=== PATIENT | female | born 1975 ===

== ENCOUNTER 2021-04-07 13:44 | Inpatient (IN) | payer OTHER ==
[~2021-04-07] VITALS: Wt 71.8 kg
[2021-04-07] VITALS (10 sets, daily range): BP systolic 78–106; BP diastolic 28–70; PULSE 81–109; TEMP 98–98.6
[2021-04-07 15:26] LABS: MEAN CELL VOLUME 127 fl (80.0-100.0); MEAN CORPUSCULAR HGB CONC 32 g/dl (33.0-37.0); MEAN PLATELET VOLUME 11.3 fl (7.4-10.4); PLATELET COUNT 98 K/mm3 (130-400); RED BLOOD COUNT 1.41 M/mm3 (4.10-5.30); REDCELL DISTRIBUTION WIDTH-CV 17.2 % (11.5-14.5)
[2021-04-07 15:32] LABS: MEAN CORPUSCULAR HEMOGLOBIN 41 pg (27.0-31.0)
[2021-04-07 15:34] LABS: HEMATOCRIT 17.9 % (37.0-47.0); HEMOGLOBIN 5.8 g/dl (12.5-16.0)
[2021-04-07 15:42] LABS: INR 2.4 (0.8-3.0); PROTHROMBIN TIME 26.9 SECONDS (9.7-12.8)
[2021-04-07 15:51] LABS: ALANINE AMINOTRANSFERASE 49 U/L (0-55); ALBUMIN 2.7 gm/dL (3.5-5.0); ALKALINE PHOSPHATASE 175 U/L (40-150); ANION GAP 13 mmol/L (7-16); AST,SGOT 140 U/L (5-34); BLOOD UREA NITROGEN 28 mg/dL (7-19); CALCIUM 9.2 mg/dL (8.4-10.2); CARBON DIOXIDE 23 mmol/L (22-29); CHLORIDE 95 mmol/L (98-107); CREATININE, serum 1.33 mg/dL (0.57-1.11); GLUCOSE 122 mg/dL (70-99); LIPASE 183 U/L (8-78); SODIUM 131 mmol/L (136-145); TOTAL PROTEIN 7.1 gm/dL (6.2-8.1)
[2021-04-07 15:54] LABS: ALCOHOL(ethanol),MEDICAL < 10 mg/dL (0-10); BILIRUBIN,TOTAL 41.5 mg/dL (0.2-1.2); POTASSIUM 2.7 mmol/L (3.5-4.5)
[2021-04-07 16:14] LABS: LYMPHOCYTE 10 % (20.0-51.0); NEUTROPHILS 85 % (42.0-75.2)
[2021-04-07 16:16] LABS: TEAR DROP CELLS 1+
[2021-04-07] MEDS ORDERED: REQUIP 0.5MG0.5 MG PO (16:41)
[2021-04-07] MEDS ORDERED: ALDACTONE 100M100 MG PO (16:41)
[2021-04-07] MEDS ORDERED: ATARAX 25MG25 MG/TAB PO (16:41)
[2021-04-07] MEDS ORDERED: INDERAL 20MG20 MG PO (16:41)
[2021-04-07] MEDS ORDERED: PROTONIX 40MG T40 MG PO (16:42)
[2021-04-07] MEDS ORDERED: SINGULAIR 110 MG/TAB PO (16:43)
[2021-04-07] MEDS ORDERED: ZYRTEC 10MG10 MG PO (16:43)
[2021-04-07] MEDS ORDERED: LASIX 20MG TABL20 MG PO (17:08)
[2021-04-08] VITALS (10 sets, daily range): BP systolic 86–124; BP diastolic 32–93; PULSE 73–94; TEMP 98–99.7
[2021-04-08 00:28] LABS: HEMATOCRIT 20.2 % (37.0-47.0); HEMOGLOBIN 6.6 g/dl (12.5-16.0)
[2021-04-08 03:46] LABS: COLLECTION METHOD CLEAN CATCH
[2021-04-08 04:02] LABS: BUDDING YEAST Present (NOT PRESENT); MUCOUS Present (NOT PRESENT); PH 6 (5-8); URINE APPEARANCE Cloudy (CLEAR/HAZY); URINE BACTERIA Many (NONE SEEN); URINE BILIRUBIN Positive (NEGATIVE); URINE BLOOD 3+ (NEGATIVE); URINE COLOR Amber (YELLOW); URINE GLUCOSE Negative (NEGATIVE); URINE KETONE Negative (NEGATIVE); URINE LEUKOCYTE ESTERASE Negative (NEGATIVE); URINE NITRATE Negative (NEGATIVE); URINE PROTEIN(semi-quant) Negative (NEGATIVE); URINE UROBILINOGEN >=4.0 mg/dL (NEGATIVE)
[2021-04-08 04:44] LABS: TRICYCLIC ANTIDEPRESS URINE NEGATIVE
--- NOTE | 2021-04-08 06:08 | NUR ---
Patient has been awake most of night. Had received one unit of blood. Rechecked HMG with a result of 6.6. RICH Gilbert aware. Patient BP remain soft. Continues to have hallucinations: talking to someone who is not in the room, yelling to get someone out of her room that is not there, etc. Took mediations per orders, cooperative with treatments. Has been incontinent tonight of stools. Staff assisted with perineal care. Voices no questions, needs, or concerns at this time. In bed with call light within reach. High fall risk precautions in place.
[2021-04-08 06:52] LABS: MEAN CORPUSCULAR HGB CONC 33 g/dl (33.0-37.0); PLATELET COUNT 97 K/mm3 (130-400); RED BLOOD COUNT 1.66 M/mm3 (4.10-5.30)
[2021-04-08 06:56] LABS: HEMATOCRIT 20.3 % (37.0-47.0); MEAN CELL VOLUME 122 fl (80.0-100.0); MEAN CORPUSCULAR HEMOGLOBIN 40 pg (27.0-31.0)
[2021-04-08 07:00] LABS: HEMOGLOBIN 6.6 g/dl (12.5-16.0)
[2021-04-08 07:11] LABS: INR 2.1 (0.8-3.0)
[2021-04-08 07:44] LABS: ALBUMIN 2.6 gm/dL (3.5-5.0); CALCIUM 8.9 mg/dL (8.4-10.2); CREATININE, serum 1.25 mg/dL (0.57-1.11); MAGNESIUM 2.2 mg/dL (1.6-2.6); POTASSIUM 3.1 mmol/L (3.5-4.5); TOTAL PROTEIN 6.9 gm/dL (6.2-8.1)
[2021-04-08 07:45] LABS: BILIRUBIN,TOTAL 39.4 mg/dL (0.2-1.2)
[2021-04-08 08:05] LABS: PATHOLOGY DIFF REVIEW OK
[2021-04-08 09:03] LABS: BAND 3 % (0-10); EOSINOPHIL 1 % (0-4); HYPOCHROMIA 1+; LYMPHOCYTE 10 % (20.0-51.0); MYELOCYTE 2 % (0-0); NEUTROPHILS 72 % (42.0-75.2); NUCLEATED RED BLOOD CELL 1 (0-6)
[2021-04-08 09:04] LABS: PLATELET ESTIMATE DECREASED (NORMAL)
[2021-04-08 09:06] LABS: TARGET CELLS 1+
[2021-04-08 09:18] LABS: BILIRUBIN,DIRECT 25.5 mg/dL (0.0-0.5)
--- NOTE | 2021-04-08 12:53 | NUR ---
SW met with patient to complete intake. Patient states that she lives in [facility] with her Jg [phone]. Patient states that she does not use DME and is independent with ADL's. In between questions patient would like to the left towards her room window after answer each question looking to confirm the answers to her questions with person that was not present. SW continued on with intake questions and patient states that she obtains her medications from [facility], and provides her DPOA is her spouse. Patient states that she plans to return to her home in [facility] on DC and asked SW if she could wait for the response of the person not present. SW informed patient that there was no other person present to obtain a response, and patient stated they must have already left. SW will continue to follow. DC plan: home
[2021-04-09] VITALS (10 sets, daily range): BP systolic 88–110; BP diastolic 34–54; PULSE 87–99; TEMP 98.2–100.1
--- NOTE | 2021-04-09 00:18 | NUR ---
Patient assessed around 2149. Compliant with medications. Reported headache. Received order for PRN Reglan/Benadryl IV, but in bed with eyes closed at this time, respirations even and unalbored. Peripheral INT to left AC. 1+ edema BLE. Patient incontinent of bowel and bladder at times. Patient states that she is feeling better today, and has been able to rest. No obvious hallucinations noted so far this shift like last night (patient would talk to and get angry at people in her room that were not there the previous night). In bed with call light within reach. High fall risk precautions in place.
--- NOTE | 2021-04-09 06:01 | NUR ---
Patient has been resting in bed with call light within reach. Recieved PRN medication for headache as requested. Voices no questions, needs, or concerns at this time.
[2021-04-09 07:57] LABS: MEAN CELL VOLUME 120 fl (80.0-100.0); MEAN CORPUSCULAR HGB CONC 33 g/dl (33.0-37.0); MEAN PLATELET VOLUME 10.8 fl (7.4-10.4); PLATELET COUNT 99 K/mm3 (130-400); RED BLOOD COUNT 1.53 M/mm3 (4.10-5.30)
[2021-04-09 08:06] LABS: INR 1.9 (0.8-3.0); PROTHROMBIN TIME 21.4 SECONDS (9.7-12.8)
[2021-04-09 08:22] LABS: ALBUMIN 2.4 gm/dL (3.5-5.0); CALCIUM 8.4 mg/dL (8.4-10.2); CREATININE, serum 1.1 mg/dL (0.57-1.11); TOTAL PROTEIN 6.3 gm/dL (6.2-8.1)
[2021-04-09 08:49] LABS: BILIRUBIN,TOTAL 36.2 mg/dL (0.2-1.2)
[2021-04-09 09:14] LABS: HEMATOCRIT 18.3 % (37.0-47.0); HEMOGLOBIN 6.1 g/dl (12.5-16.0); MEAN CORPUSCULAR HEMOGLOBIN 40 pg (27.0-31.0)
--- NOTE | 2021-04-09 10:17 | NUR ---
Pt assessment complete. Pt is sitting up in bed upon entry, she is A/O x4 but occasionally confused still. Denies hallucinations visual or verbal. Denies N/V, able to tolerate some breakfast. No pain at this time. Requesting to shower later today. No needs at this time. Call light and bed alarms in place.
[2021-04-09 13:02] LABS: LYMPHOCYTE 8 % (20.0-51.0); METAMYELOCYTE 1 % (0-0); NEUTROPHILS 77 % (42.0-75.2)
[2021-04-09 13:03] LABS: PLATELET ESTIMATE DECREASED (NORMAL)
[2021-04-09 13:04] LABS: POLYCHROMASIA 1+
--- NOTE | 2021-04-09 18:27 | NUR ---
Pt oriented through the day. Able to make needs known. Denied any N/V. Did report several stools through the day. Tolerating PO. Improvement of headache with a Lisa. POC discussed with patient. No needs at this time.
--- NOTE | 2021-04-09 23:08 | NUR ---
Patient resting in bed upon enter the room. Patient easily awake with verbal stimulation. Patient A/Ox4. Patient denies any hallucinations. Patient reports headache. PRN pain med given for headache. Patient tolerating dinner. No N/V noted. VS stable. Potassium IV is currently infusing to left AC iv site. All scheduled meds given per JUN. Call light in reach. Will continue to monitor.
[2021-04-10] VITALS (9 sets, daily range): BP systolic 88–114; BP diastolic 34–58; PULSE 76–90; TEMP 97.4–98.6
[2021-04-10 06:50] LABS: INR 2.1 (0.8-3.0); PROTHROMBIN TIME 23.1 SECONDS (9.7-12.8)
[2021-04-10 07:07] LABS: MEAN CELL VOLUME 121 fl (80.0-100.0); MEAN CORPUSCULAR HGB CONC 33 g/dl (33.0-37.0); MEAN PLATELET VOLUME 10.6 fl (7.4-10.4); PLATELET COUNT 106 K/mm3 (130-400); RED BLOOD COUNT 1.63 M/mm3 (4.10-5.30)
[2021-04-10 07:17] LABS: ALBUMIN 2.3 gm/dL (3.5-5.0); BILIRUBIN,TOTAL 34.7 mg/dL (0.2-1.2); CALCIUM 8.4 mg/dL (8.4-10.2); CREATININE, serum 1.02 mg/dL (0.57-1.11); MAGNESIUM 2.3 mg/dL (1.6-2.6); POTASSIUM 4.2 mmol/L (3.5-4.5); TOTAL PROTEIN 6.4 gm/dL (6.2-8.1)
[2021-04-10 08:18] LABS: HEMATOCRIT 19.7 % (37.0-47.0); HEMOGLOBIN 6.5 g/dl (12.5-16.0); MEAN CORPUSCULAR HEMOGLOBIN 40 pg (27.0-31.0)
[2021-04-10 08:29] LABS: BAND 2 % (0-10); LYMPHOCYTE 7 % (20.0-51.0); METAMYELOCYTE 1 % (0-0); NEUTROPHILS 82 % (42.0-75.2); NUCLEATED RED BLOOD CELL 1 (0-6); PLATELET ESTIMATE DECREASED (NORMAL); TEAR DROP CELLS 1+
[2021-04-10 08:30] LABS: POLYCHROMASIA 1+
[2021-04-10 08:33] LABS: ANISOCYTOSIS 1+
--- NOTE | 2021-04-10 08:34 | NUR ---
CRITICAL HGB REPORTED TO RICH MINER.
[2021-04-10 17:23] LABS: HEMATOCRIT 20.9 % (37.0-47.0); HEMOGLOBIN 6.8 g/dl (12.5-16.0)
--- NOTE | 2021-04-10 17:25 | NUR ---
CRITICAL HGB LEVEL CALLED TO DR. MENENDEZ
--- NOTE | 2021-04-10 18:00 | NUR ---
Scheduled medications given. Shift assessment performed. Patient given oxy one time this shift for a headached rated a 6/10. Patient states that this helped. Has denied any further pain. Blood pressures have been on the softer side, Provider aware. The rest of her vital signs are stable, patient A&O. Patient denies any further needs at this time. Call light in reach.
--- NOTE | 2021-04-10 19:10 | NUR ---
Patient sitting up in bed and eating dinner at shift change. Patient reports feeling much better today. No acute distress noted. Call light in reach.
--- NOTE | 2021-04-10 22:16 | NUR ---
Patient assessed. Patient A/Ox4. Patient denies pain, SOB, headache, or N/V. Patient states feeling much better. Denies having hallucinations today. Scheduled meds given per JUN. BP med not given due to soft BP tonight. Call light in reach. Will continue to monitor.
--- NOTE | 2021-04-10 22:19 | NUR ---
Patient not scoring anymore on CIWA protocol for the last 24 hours. Called RICH Gilbert and updated.
[2021-04-11 01:41] VITALS: BP 96/40; PULSE 79; TEMP 98.7
[2021-04-11 05:09] VITALS: BP 115/54; PULSE 80; TEMP 99.2
[2021-04-11 07:11] LABS: MEAN CELL VOLUME 120 fl (80.0-100.0); MEAN CORPUSCULAR HGB CONC 33 g/dl (33.0-37.0); PLATELET COUNT 120 K/mm3 (130-400); RED BLOOD COUNT 1.63 M/mm3 (4.10-5.30); REDCELL DISTRIBUTION WIDTH-CV 24.4 % (11.5-14.5)
[2021-04-11 07:14] LABS: HEMATOCRIT 19.6 % (37.0-47.0); HEMOGLOBIN 6.5 g/dl (12.5-16.0); MEAN CORPUSCULAR HEMOGLOBIN 40 pg (27.0-31.0)
[2021-04-11 07:24] LABS: ALBUMIN 2.3 gm/dL (3.5-5.0); BILIRUBIN,TOTAL 27.9 mg/dL (0.2-1.2); CREATININE, serum 1.01 mg/dL (0.57-1.11); POTASSIUM 3.7 mmol/L (3.5-4.5); TOTAL PROTEIN 6.3 gm/dL (6.2-8.1)
--- NOTE | 2021-04-11 07:39 | NUR ---
CRITICAL HGB CALLED TO RICH VILLEGAS.
[2021-04-11 07:45] VITALS: BP 115/48; PULSE 74; TEMP 98.6
[2021-04-11] MEDS ORDERED: MAG-OX 400400 MG/TAB PO (11:03)
[2021-04-11] MEDS ORDERED: FOLIC ACID 11 MG/TA1 PO (11:03)
[2021-04-11] MEDS ORDERED: MULTI VITAMINS1 TAB PO (11:04)
[2021-04-11] MEDS ORDERED: THIAMINE 1100 MG/TAB PO (11:04)
[2021-04-11] MEDS ORDERED: OMNICEF 300MG300 MG PO (11:09)
[2021-04-11] MEDS ORDERED: PREDNISOLO15 MG/5 M3 PO (11:15)
[2021-04-11] MEDS ORDERED: LACTULOSE10 GM/153 PO (11:18)
[2021-04-11 12:15] VITALS: BP 105/50; PULSE 76; TEMP 97.9
--- NOTE | 2021-04-11 13:57 | NUR ---
Scheduled medications given. Shift assessment performed. Patient denies any pain, discomfort, SOA, or further needs at this time. Patient deemed fit for dicharge. IV DC'd, catheter intact, no signs of phlebitis. Discharge education/instructions given. All questions answered. VSS. Patient A&O. Patient escorted from building via wheelchair by [facility] Staff. transporting home.
== END 2021-04-11 14:00 | disposition home or self-care (01) | DRG 433 ==
LOC: COL.ER 13:44 → MEDICAL 16:39 → SURG 04-10 09:33 → MEDICAL 04-10 09:33
PROVIDERS: Family Medicine; Internal Medicine; Physician Assistant; Student in an Organized Health Care Education/Training Program; ADMIT Internal Medicine
DX: K70.10 Alcoholic hepatitis without ascites (principal); E87.1 Hypo-osmolality and hyponatremia; N17.9 Acute kidney failure, unspecified; N39.0 Urinary tract infection, site not specified; K70.30 Alcoholic cirrhosis of liver without ascites; K21.9 Gastro-esophageal reflux disease without esophagitis; K72.90 Hepatic failure, unspecified without coma; F10.10 Alcohol abuse, uncomplicated; Y90.9 Presence of alcohol in blood, level not specified; D53.9 Nutritional anemia, unspecified; E87.6 Hypokalemia; D69.6 Thrombocytopenia, unspecified; B96.20 Unspecified Escherichia coli [E. coli] as the cause of diseases classified elsewhere; I95.9 Hypotension, unspecified
CPT/HCPCS: 99223-AI; 99232-AI; 99233-AI; 99239; J1200; J2765; J3475; J3480; J7030; J7040; J7510; P9016